=== PATIENT | female | born 1970 | race Caucasian/White ===

== ENCOUNTER 2024-06-23 11:10 | Emergency (ER) | payer OTHER, SELFPAY ==
[2024-06-23 11:13] VITALS: BP 155/88; PULSE 61; RESP 18; TEMP 36.6; O2SAT 98; BMI 31.1
--- NOTE | 2024-06-23 11:40 | CRLHL7_ITS ---
For Patients: As a result of the Cures Act, medical imaging exams and procedure reports are released immediately into your electronic medical record. You may view this report before your referring provider. If you have questions, please contact your health care provider. Indication: LT ARM TINGLING DOWN ARM Technique: Three views of the left shoulder Comparison: None Findings/Impression: No acute fracture or malalignment. No significant osteoarthritic degenerative changes of the left shoulder. No suspicious osseous lesions. The soft tissues are unremarkable. Dictated by Aaron Byers MD @ 06/23/2024 12:35:31 PM (Electronically Signed)
--- NOTE | 2024-06-23 11:40 | ED_ITS ---
HPI - General Adult General Date Seen: 06/23/24 Chief complaint: Extremity Pain/Injury, Upper Stated complaint: LT arm pain no known injury Time Seen by Provider: 06/23/24 11:29 Source: patient Mode of arrival: ambulatory Limitations: no limitations History of Present Illness HPI narrative: Patient is a 54-year-old female presenting for left shoulder and arm pain. She states the pain is been going on for the past week. She states it starts to her left shoulder goes all the way down to her fingertips. Has not noticed any swelling to the arm. Is not remember any injuries to the arm. 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 Does of having mild tingling sensation to her left hand. Symptoms do improve somewhat when she lays on her left shoulder. Pain seems to be always there whether she is using the shoulder or not. Has also noticed for the past for 5 days having left-sided chest pain it is sharp in nature and is been intermittent. Currently is not having any pain. Does have a family history of heart disease before the age of 65. She has never smoked. Did have chest pain previously and was evaluated for it showing no concerning abnormalities. Denies shortness of breath, headache, lightheadedness, dizziness, weakness, vision changes, abdominal pain. Related Data Home Medications ?Medication ?Instructions ?Recorded ?Confirmed atorvastatin 40 mg tablet 40 mg PO DAILY 06/23/24 06/23/24 Previous Rx's ?Medication ?Instructions ?Recorded ketorolac 10 mg tablet 10 mg PO Q6H PRN pain #20 tabs 06/23/24 Allergies Allergy/AdvReac Type Severity Reaction Status Date / Time acetaminophen (From Percocet) Allergy Verified 06/23/24 11:17 oxycodone (From Percocet) Allergy Verified 06/23/24 11:17 Review of Systems Status of ROS: Reports: 10 or more systems reviewed and unremarkable except as noted in History and below PFSH PFS Social History Smoking Status: Former smoker What tobacco products do you use: cigarettes Years smoked: 8 Do you use any of these nicotine containing products: None Second hand tobacco smoke exposure: No How often do you have a drink containing alcohol: monthly or less AUDIT-C Alcohol total score: 1 Non-prescribed substance use: denies use service: No Exam Narrative: Exam Narrative: Const: Well-nourished, Well-developed, in mild distress Eyes: PERRL, no conjunctival injection, and symmetrical lids HENT: Atraumatic external nose and ears. Moist mucous membranes. Neck: Symmetric, trachea midline, No thyromegaly. CVS: RRR, No murmurs or gallops. Peripheral pulses 2+ and equal in all extremities RESP: Unlabored respiratory effort. Clear to auscultation bilaterally. GI: Nontender/Nondistended, No rebound or guarding. MSK: Tenderness noted throughout the left shoulder and into the left lateral part of the neck. Tenderness worse in the supraspinatus region. No tenderness noted within the arm and forearm. Does have tenderness with both active and passive range of motion to the left shoulder. Tenderness to left chest that reproduces previous pain Skin: Warm, Dry. No rashes or lesions. Neuro: Normal Muscle tone, No focal neurological deficits. Psych: Awake, Alert, & Oriented x3. Appropriate mood and affect. Const: Vital Signs, click to edit/add: Vital Signs - 24 hr 06/23/24 11:13 Temperature 97.9 F Pulse Rate [Right Pulse Oximeter] 61 Respiratory Rate 18 Blood Pressure [Ri ght Upper Arm] 155/88 H Pulse Oximetry 98 Oxygen Delivery Me thod Room Air Course Vital Signs Vital signs: Initial Vital Signs Temperature 97.9 F 06/23/24 11:13 Temperature Source Temporal Artery Scan 06/23/24 11:13 Pulse Rate 61 06/23/24 11:13 Respiratory Rate 18 06/23/24 11:13 Blood Pressure 155/88 H 06/23/24 11:13 Blood Pressure Mean 110 H 06/23/24 11:13 Blood Pressure Position Sitting 06/23/24 11:13 Pulse Oximetry 98 06/23/24 11:13 Oxygen Delivery Method Room Air 06/23/24 11:13 Vital Signs Temperature 97.9 F 06/23/24 11:13 Pulse Rate 61 06/23/24 11:13 Respiratory Rate 18 06/23/24 11:13 Blood Pressure 155/88 H 06/23/24 11:13 Pulse Oximetry 98 06/23/24 11:13 Oxygen Delivery Method Room Air 06/23/24 11:13 Temperature 97.9 F 06/23/24 11:13 Pulse Rate 61 06/23/24 11:13 Respiratory Rate 18 06/23/24 11:13 Blood Pressure 155/88 H 06/23/24 11:13 Pulse Oximetry 98 06/23/24 11:13 Oxygen Delivery Method Room Air 06/23/24 11:13 Medications Administered Medications: Discontinued Medications Generic Name Dose Route Start Last Admin Trade Name Lisa PRN Reason Stop Dose Admin Ketorolac Tromethamine 10 mg 06/23/24 11:40 06/23/24 13:27 Ketorolac 10 Mg Tablet PO 06/23/24 11:41 10 mg ONCE ONE Administration Medical Decision Making MDM Narrative Medical decision making narrative: Patient is a 54-year-old female presenting for left shoulder pain. Considering she has pain movement throughout the shoulder and there is tenderness noted but no injury this is likely some type of tendinitis. Will x-ray the shoulder to rule out any occult fractures possibly see signs of calcifications that could further point to tendinitis. No swelling and blood clot appears unlikely. I believe the arm pain is referred pain from the shoulder. Neck pain could be r elated to some spinal stenosis of the neck but could also just be referred pain from the shoulder. She states the shoulder is much more tender than the neck at this time and she would not even notice any neck pain until I palpated the area. She is also complaining about chest pain. The differential diagnosis of chest pain is broad and includes common etiologies such as musculoskeletal strain, G ERD, pneumonia, etc. More serious etiologies considered include PE, coronary artery disease, pneumothorax, aortic dissection, aortic aneurysm. Her chest pain is likely also related to the shoulder pain and is fully reproducible on palpation. I will still though do a EKG and troponin to rule out any coronary artery disease. Chest x-ray will also be ordered to look for possible pneumothorax or pneumonia. Unlikely to be PE, aortic dissection, aortic aneurysm considering her lower stable vital signs and intermittent nature of the pain. CBC and BMP ordered. Toradol given for pain. EKG and troponin showed no concerning abnormalities. Lab work shows no concerning findings. Chest x-ray reviewed by myself and radiologist shows no acute abnormalities. Same with the shoulder x-ray. Considering the chest pains per pills walk palpation has been going on for 4-5 days and not believe is necessary to repeat a troponin. Is most likely musculoskeletal chest pain all her symptoms currently are probably coming from she the shoulder. I will give her prescription for Toradol and former follow-up with orthopedics. She states she understands. Lab Data Labs: Lab Results 06/23/24 Range/Units 12:10 WBC 5.36 (4.50-11.00) K/uL RBC 4.61 (4.00-5.20) m/uL Hgb 14.1 (12.0-16.0) gm/dL Hct 43.5 (33.0-51.0) % MCV 94 (80-100) fL MCH 31 (26-34) pg MCHC 32 (32-36) gm/dL RDW Coeff of Patricia 11.9 (11.5-15.5) % Plt Count 307 (140-440) K/uL Neut % (Auto) 63.2 (42.0-72.0) % Lymph % (Auto) 23.5 (20-44) % Redwood % (Auto) 8.8 (0.0-11.0) % Eos % (Auto) 4.1 (0.0-7.0) % Baso % (Auto) 0.2 (0.0-3.0) % Neut # (Auto) 3.39 (1.7-7.0) K/uL Lymph # (Auto) 1.26 (0.90-2.90) K/uL Redwood # (Auto) 0.50 (0.00-0.90) K/UL Eos # (Auto) 0.22 (0.00-0.50) K/uL Baso # (Auto) 0.01 (0.00-0.30) K/uL Abs Immat Gran (auto) 0.01 (0.00-0.30) K/uL Imm/Tot Granulo (auto) 0.2 % Sodium 138 (135-149) mmol/L Potassium 4.0 (3.6-5.1) mmol/L Chloride 99 (96-114) mmol/L Carbon Dioxide 30 (20-32) mmol/L Anion Gap 9 (7-15) mEq/L BUN 21 (7-30) mg/dL Creatinine 0.9 (0.5-1.5) mg/dL Estimated Creat Clear 56.52 Estimated GFR 76 ml/min Glucose 100 (60-115) mg/dL Calcium 9.7 (8.4-10.6) mg/dL Imaging Data Chest x-ray: Attestation: I have reviewed the pertinent imaging results. Radiologist's impression: No acute cardiopulmonary process. Dictated by Aaron Byers MD @ 06/23/2024 12:36:40 PM Left shoulder x-ray: Attestation: I have reviewed the pertinent imaging results. Radiologist's impression: No acute fracture or malalignment. No significant osteoarthritic degenerative changes of the left shoulder. No suspicious osseous lesions. The soft tissues are unremarkable. Dictated by Aaron Byers MD @ 06/23/2024 12:35:31 PM ECG Data Attestation: I personally reviewed and interpreted this ECG as follows: Prior ECG tracings: available for review Interpretation: Sinus bradycardia with a rate of 52 beats per minute, normal intervals, normal axis, no ST or T-wave abnormalities. Discharge Plan Discharge Clinical Impression: Musculoskeletal chest pain Acute shoulder pain Qualifiers: Laterality: left Qualified Code(s): M25.512 - Pain in left shoulder Instructions: Shoulder Pain (ED), Chest Wall Pain (ED) Additional Instructions: Ability shoulder pain may be from a tendinitis causing symptoms. And is referring pain to your chest. At this time your safe for discharge I will prescribe the Toradol for pain. While taking Toradol do not take other NSAIDs as they is in class of drugs. Follow-up with [facility]. Call them at . Prescriptions: New ketorolac 10 mg tablet 10 mg PO Q6H PRN (Reason: pain) Qty: 20 0RF Rx Instructions: maximum total duration of 5 days from all oral, intranasal, or parenteral formulations No Action atorvastatin 40 mg tablet 40 mg PO DAILY Follow Up/Referrals: Larry Martinez MD [Primary Care Provider] - Stand Alone Forms: [employer] [employer] Info Instructions
--- NOTE | 2024-06-23 11:41 | CRLHL7_ITS ---
For Patients: As a result of the Cures Act, medical imaging exams and procedure reports are released immediately into your electronic medical record. You may view this report before your referring provider. If you have questions, please contact your health care provider. INDICATION: : LT SHOULDER PAIN COMPARISON: None TECHNIQUE: Two view(s) of the chest FINDINGS: The cardiomediastinal silhouette and pulmonary vasculature are unremarkable. There is no focal airspace consolidation, pleural effusion, or pneumothorax. No displaced fractures. IMPRESSION: No acute cardiopulmonary process. Dictated by Aaron Byers MD @ 06/23/2024 12:36:40 PM (Electronically Signed)
[2024-06-23 12:18] LABS: Basophils Absolute Auto 0.01 K/uL (0.00-0.30); Basophils Percent Auto 0.2 % (0.0-3.0); Eosinophils Absolute Auto 0.22 K/uL (0.00-0.50); Eosinophils Percent Auto 4.1 % (0.0-7.0); Hematocrit 43.5 % (33.0-51.0); Hemoglobin* 14.1 gm/dL (12.0-16.0); Immature Granulocytes Abs Auto 0.01 K/uL (0.00-0.30); Immature Granulocytes Pct Auto 0.2 %; Lymphocytes Absolute Auto 1.26 K/uL (0.90-2.90); Lymphocytes Percent Auto 23.5 % (20-44); Mean Corpuscular HGB Conc 32 gm/dL (32-36); Mean Corpuscular Hemoglobin 31 pg (26-34); Mean Corpuscular Volume 94 fL (80-100); Monocytes Percent Auto 8.8 % (0.0-11.0); Neutrophils Absolute Auto 3.39 K/uL (1.7-7.0); Neutrophils Percent Auto 63.2 % (42.0-72.0); Platelet Count* 307 K/uL (140-440); RDW Coefficient of Variation % 11.9 % (11.5-15.5); Red Blood Count 4.61 m/uL (4.00-5.20); White Blood Count* 5.36 K/uL (4.50-11.00)
[2024-06-23 12:34] LABS: Chloride* 99 mmol/L (96-114)
[2024-06-23 12:35] LABS: Sodium* 138 mmol/L (135-149)
[2024-06-23 12:37] LABS: Creatinine* 0.9 mg/dL (0.5-1.5); Est. Creatinine Clearance* 56.52; Estimated Glomerular Filt Rate 76 ml/min
[2024-06-23 12:38] LABS: Anion Gap 9 mEq/L (7-15); Blood Urea Nitrogen* 21 mg/dL (7-30); Calcium* 9.7 mg/dL (8.4-10.6); Carbon Dioxide* 30 mmol/L (20-32); Glucose* 100 mg/dL (60-115)
[2024-06-23 12:59] LABS: Slide Review Reflex No
[2024-06-23] MEDS: KETOROLAC 10 MG TABLET PO (13:27)
[2024-06-23 13:54] VITALS: BP 157/84; PULSE 60; RESP 16
== END 2024-06-23 13:55 | disposition home or self-care (01) ==
PROVIDERS: Emergency Provider Student in an Organized Health Care Education/Training Program; PCP Surgery
DX: M25.512 Pain in left shoulder (principal); R07.9 Chest pain, unspecified
CPT/HCPCS: 36415; 71046; 73030; 80048; 84484; 85025; 93005; 99283; 99284; A9270